=== PATIENT | female | born 2000 | race Caucasian/White ===

== ENCOUNTER 2023-11-27 21:16 | Emergency (ER) | payer BC ==
[~2023-11-27] VITALS: Ht 165.1 cm; Wt 65.0 kg
[2023-11-27 21:25] VITALS: BP 101/70; PULSE 81; RESP 16; TEMP 98.5; O2SAT 100
[2023-11-27] MEDS ORDERED: CHLORDIAZEPOXIDE 25MG CAPSULE PO ONE (21:45)
[2023-11-27] MEDS ORDERED: GABA-534 MT (21:56)
[2023-11-27] MEDS ORDERED: CHLO25CA10 PO (21:56)
[2023-11-27] MEDS ORDERED: ONDA4TAB50 MT (21:56)
== END 2023-11-27 22:49 | disposition home or self-care (01) ==
LOC: ER 21:16
DX: F10.239 Alcohol dependence with withdrawal, unspecified (principal); F11.90 Opioid use, unspecified, uncomplicated; F12.90 Cannabis use, unspecified, uncomplicated
CPT/HCPCS: 99283